=== PATIENT | female | born 1965 | race Caucasian/White ===

== ENCOUNTER 2016-10-09 18:36 | Emergency (ER) | payer OTHER ==
[~2016-10-09] VITALS: Ht 165.1 cm; Wt 137.4 kg
[~2016-10-09 18:36] MED LIST: 24 HOUR ALLER15.8 ML; ACETAMINOPHEN500 M5 PO; ALBUTEROL20 ml INH; AZELASTINE205.5 MCG/ INH; BENADRYL25 M3 PO; DICYCLOMINE HCL20 MG PO; DULERA 100 MCG/13 GM INH; GABAPENTIN600 MG PO; HUMULIN R500 U/ML; KEPPRA500 MG PO; LOSARTAN POTASS25 MG PO; MELOXICAM15 MG PO; MULTI VITAMIN1 EACH PO; NITROGLYGERIN0.4 MG SL; PRAVACHOL80 MG PO; TRULICITY0.75 MG/0. SQ; VITAMIN B122500 MCG; XIGDUO XR; ZANTAC150 M1 PO; ZOLOFT50 MG PO
[2016-10-09 20:04] LABS: BASOPHIL% 0.5 % (0-2.5); EOSINOPHIL# 0.1 X10e3 (0-0.7); EOSINOPHIL% 1.3 % (0.0-7.0); HEMATOCRIT 36.2 % (35.0-45.0); LYMPHOCYTE# 2.3 X10e3 (1.0-3.5); LYMPHOCYTE% 22.9 % (17.0-45.0); MEAN CELL VOLUME 84.6 FL (83-96); MEAN CORPUSCULAR HGB CONC 33.1 g/dL (30-36); MONOCYTE# 0.8 X10e3 (0-1.0); MONOCYTE% 7.8 % (3.0-12.0); NEUTROPHIL# 6.7 X10e3 (1.5-7.1); NEUTROPHIL% 67.5 % (40-75); PLATELET COUNT 329 X10e3 (140-420); RED BLOOD COUNT 4.28 X10e (3.90-5.30); RED CELL DISTRIBUTION WIDTH 16.6 % (11.0-15.5); WHITE BLOOD COUNT 9.9 X10e3 (4.0-10.5)
[2016-10-09 20:06] LABS: DIFF IND NO
[2016-10-09 20:22] LABS: INR 1.1; PARTIAL THROMBOPLASTIN TIME 23.5 SECONDS (23.5-31.3); PROTHROMBIN TIME (PATIENT) 11.4 SECONDS (10.0-11.7)
[2016-10-09 20:36] LABS: CALCIUM SERUM 9.3 mg/dL (8.4-10.2); CREATININE SERUM 0.9 mg/dL (0.6-1.4); GLOM FILT RATE Estimated 75.1 mL/min (>60); POTASSIUM 4.6 mmol/L (3.5-5.1)
[2016-10-09 21:29] LABS: HEMATOCRIT 34.1 % (35.0-45.0); HEMOGLOBIN 11.2 gm/dL (12.0-16.0)
== END 2016-10-09 22:35 | disposition home or self-care (01) ==
LOC: CED 18:36
PROVIDERS: Emergency Medicine
DX: N92.0 Excessive and frequent menstruation with regular cycle (principal); E11.65 Type 2 diabetes mellitus with hyperglycemia; I10 Essential (primary) hypertension; F17.200 Nicotine dependence, unspecified, uncomplicated; Z90.49 Acquired absence of other specified parts of digestive tract; Z98.51 Tubal ligation status
CPT/HCPCS: 36415; 80048; 85014; 85018; 85025; 85610; 85730; 86850; 86900; 86901; 99284